=== PATIENT | female | born 1970 | race Two or more races ===

== ENCOUNTER 2024-01-09 21:09 | Emergency (ER) | payer OTHER ==
[~2024-01-09] VITALS: Ht 162.6 cm; Wt 59.0 kg
[2024-01-09] MEDS ORDERED: ZESTRIL5 MG (21:19)
[2024-01-09] MEDS ORDERED: KETOROLAC TROMETHAMINE 60 MG VIAL IM ONE ×2 (21:29→21:30)
[2024-01-09] MEDS ORDERED: DICLOFENAC SODI75 MG PO (21:54)
== END 2024-01-09 22:04 | disposition home or self-care (01) ==
LOC: ER 21:10
DX: M12.532 Traumatic arthropathy, left wrist (principal)
CPT/HCPCS: 29125; 73110; 96372; 99283; J1885